=== PATIENT | male | born 1950 | race Hispanic/Latino ===

== ENCOUNTER 2017-12-17 08:59 | Observation (INO) | payer OTHER ==
[2017-12-16 15:41] VITALS: BP 148/89
[2017-12-16 15:50] LABS: CREATININE 1.2 mg/dL (0.5-1.5); POTASSIUM 4.1 mmol/L (3.5-5.1)
[~2017-12-17] VITALS: Ht 172.7 cm; Wt 109.7 kg
[2017-12-17] VITALS (28 sets, daily range): BP systolic 114–168; BP diastolic 60–87
[~2017-12-17 08:59] MED LIST: AEC81 PO; AMLO2.5T PO; AMLO5TAB2 PO; ATOR-2 PO; CEFAZOLIN 3GM /D5W 100ML 100 ML IV SCH; HYDR-4060 PO; METO-391 PO; METO-409 PO; OLME1TAB44 PO
[2017-12-17] MEDS ORDERED: LACTATED RINGERS 1000ML 1,000 ML IV ONE (09:35)
[2017-12-17] MEDS: CEFAZOLIN SODIUM 1 GM VIAL ONE ×2 (09:35→12:20)
[2017-12-17] MEDS ORDERED: EPINEPHRINE 1 MG/ML 30ML VIAL IJ ONE (11:19)
[2017-12-17] MEDS ORDERED: PROPOFOL 10 MG/ML 20ML VIAL IV ONE (11:41)
[2017-12-17] MEDS ORDERED: FENTANYL CITRATE PF 50 MCG/1 ML 2ML VIAL ONE (11:41)
[2017-12-17] MEDS ORDERED: DEXAMETHASONE SOD PHOSPHATE 10MG/ML 1ML VIAL ONE (11:41)
[2017-12-17] MEDS ORDERED: LIDOCAINE PF 2% 5ML ABBOJECT ONE (11:41)
[2017-12-17] MEDS ORDERED: GLYCOPYRROLATE 0.2 MG/ML 5 ML VIAL ONE (11:41)
[2017-12-17] MEDS ORDERED: MIDAZOLAM HCL 1 MG/ML 2ML VIAL ONE (11:41)
[2017-12-17] MEDS ORDERED: HYDR-309 PO (16:25)
[2017-12-17] MEDS ORDERED: NAPR-1192 PO (16:26)
[2017-12-17] MEDS ORDERED: CEPH500B PO (16:26)
[2017-12-17] MEDS ORDERED: CALDOLOR 800MG+NS 250ML 250 ML IV ONE (16:42)
[2017-12-17] MEDS ORDERED: DEXAMETHASONE SOD PHOSPHATE 4 MG/ML 5ML VIAL ONE (16:45)
[2017-12-17] MEDS ORDERED: IPRATROPIUM/ALBUTEROL SULFATE 3 ML SOLUTION IH ONE ×2 (17:32→18:50)
[2017-12-17 17:41] LABS: ABG BASE EXCESS 1.8 mmol/L (-2.0-3.0); ABG HCO3 26.2 mmol/L (21.0-28.0); ABG OXYGEN SATURATION 86.4 % (95.0-99.0); ABG PCO2 40 mmHg (35-48)
[2017-12-17] MEDS ORDERED: SODIUM CHLORIDE 0.9% 10 ML VIAL IVP PRN (20:45)
[2017-12-17] MEDS ORDERED: HYDROCODONE/ACETAMINOPHEN 5/325 MG TAB PO PRN (23:15)
[2017-12-18 01:36] LABS: CREATINE KINASE MB 5.8 ng/mL (0.5-3.6); MYOGLOBIN 327 ng/mL (10-92); TROPONIN I < 0.04 ng/mL (0.00-0.06)
[2017-12-18 01:43] LABS: CREATINE KINASE, TOTAL 540 U/L (21-232)
[2017-12-18] MEDS: IPRATROPIUM/ALBUTEROL SULFATE 3 ML SOLUTION IH SCH ×3 (02:07→10:02)
[2017-12-18] MEDS ORDERED: LEVOFLOXACIN 500 MG/D5W 100 ML 100 ML IV SCH (02:15)
[2017-12-18 04:10] LABS: ABG BASE EXCESS -0.5 mmol/L (-2.0-3.0); ABG HCO3 23.6 mmol/L (21.0-28.0); ABG OXYGEN SATURATION 85.5 % (95.0-99.0); ABG PCO2 37 mmHg (35-48)
[2017-12-18 04:27] VITALS: BP 130/82
[2017-12-18 04:37] LABS: ABG BASE EXCESS -0.1 mmol/L (-2.0-3.0); ABG HCO3 20.7 mmol/L (21.0-28.0); ABG OXYGEN SATURATION 98.8 % (95.0-99.0); ABG PCO2 25 mmHg (35-48)
[2017-12-18] MEDS ORDERED: HYDROCODONE/ACETAMINOPHEN 5/325 MG TAB ONE (05:36)
[2017-12-18] MEDS ORDERED: HYDROCODONE/ACETAMINOPHEN 5/325 MG TAB PO PRN (05:45)
[2017-12-18 06:59] LABS: HEMATOCRIT 38.8 % (42-54); MEAN CORPUSCULAR HEMOGLOBIN 31.4 pg (27.0-33.0); MEAN CORPUSCULAR VOLUME 92.4 fL (79-99); PLATELET COUNT (AUTO) 246 K/uL (130-400); WHITE BLOOD COUNT (AUTO) 14.3 K/uL (4.8-10.8)
[2017-12-18 07:27] LABS: CREATINE KINASE MB 5.2 ng/mL (0.5-3.6); MYOGLOBIN 252 ng/mL (10-92); TROPONIN I < 0.04 ng/mL (0.00-0.06)
[2017-12-18] MEDS ORDERED: KETOROLAC TROMETHAMINE 30MG/ML IV SCH (07:30)
[2017-12-18] MEDS ORDERED: KETOROLAC TROMETHAMINE 30MG/ML ONE (07:36)
[2017-12-18 07:37] LABS: B-TYPE NATRIURETIC PEPTIDE 110 pg/mL (0-100); CREATINE KINASE, TOTAL 689 U/L (21-232)
[2017-12-18 07:44] LABS: CREATININE 1.3 mg/dL (0.5-1.5); POTASSIUM 3.6 mmol/L (3.5-5.1)
[2017-12-18 07:45] VITALS: BP 161/78
[2017-12-18] MEDS ORDERED: METOPROLOL SUCCINATE 100 MG PO SCH (09:00)
[2017-12-18] MEDS ORDERED: ASPIRIN 81 MG EC TAB PO SCH (09:00)
[2017-12-18] MEDS ORDERED: AMLODIPINE BESYLATE 5 MG TAB PO SCH (09:00)
[2017-12-18] MEDS ORDERED: LOSARTAN 100 MG TABLET PO SCH ×2 (09:00→09:50)
[2017-12-18] MEDS ORDERED: HYDROCHLOROTHIAZIDE 25 MG TABLET PO SCH (09:00)
[2017-12-18] MEDS ORDERED: KETOROLAC TROMETHAMINE 30MG/ML IV PRN (10:00)
[2017-12-18] MEDS ORDERED: IOPAMIDOL-370 100 ML VIAL IV ONE (11:38)
[2017-12-18 12:00] VITALS: BP 133/76
[2017-12-18] MEDS ORDERED: ATORVASTATIN CALCIUM 40 MG TABLET PO SCH (21:00)
[2017-12-18] MEDS ORDERED: METOPROLOL SUCCINATE 50 MG PO SCH (21:00)
[2017-12-18] MEDS ORDERED: AMLODIPINE BESYLATE 2.5 MG TAB PO SCH (21:00)
== END 2017-12-18 14:00 | disposition home or self-care (01) ==
LOC: DAH 08:59 → DAHIP 09:00 → DAH 09:00 → 4AH 21:09
PROVIDERS: ADMIT Orthopaedic Surgery; ATTEND Orthopaedic Surgery
DX: M19.011 Primary osteoarthritis, right shoulder (principal); M75.101 Unspecified rotator cuff tear or rupture of right shoulder, not specified as traumatic; E78.5 Hyperlipidemia, unspecified; I25.10 Atherosclerotic heart disease of native coronary artery without angina pectoris; J96.01 Acute respiratory failure with hypoxia; M75.121 Complete rotator cuff tear or rupture of right shoulder, not specified as traumatic; I11.9 Hypertensive heart disease without heart failure; E78.2 Mixed hyperlipidemia; G89.29 Other chronic pain; E66.01 Morbid (severe) obesity due to excess calories; M75.41 Impingement syndrome of right shoulder; J30.89 Other allergic rhinitis; N40.1 Benign prostatic hyperplasia with lower urinary tract symptoms; Z98.61 Coronary angioplasty status; R80.9 Proteinuria, unspecified; Z68.38 Body mass index [BMI] 38.0-38.9, adult; Z79.899 Other long term (current) drug therapy; Z95.5 Presence of coronary angioplasty implant and graft; Z79.82 Long term (current) use of aspirin; Z96.611 Presence of right artificial shoulder joint
CPT/HCPCS: 29824; 29826; 29827; 36415 ×2; 36600 ×2; 71045 ×2; 71275; 80048 ×2; 82550 ×2; 82553 ×2; 82803 ×3; 83874 ×2; 83880 ×2; 84484 ×2; 85027; 85378; 93005 ×2; 94640 ×6; 94660; 94664; 96365; 96375; A4218; A4565; A4649 ×5; A4930; A6204; C1763; G0378 ×29; J0171; J0690 ×2; J1100 ×2; J1741; J1885; J1956; J2001; J2250; J2704; J3010; J3490; J7030; J7120; Q9967

== ENCOUNTER → 2021-02-04 | Outpatient (CLI) | payer OTHER ==
[~2021-02-04] MED LIST changes: +AMLO-257 PO; -AMLO2.5T PO; +AMLO2.5T4 PO; -AMLO5TAB2 PO; -CEFAZOLIN 3GM /D5W 100ML 100 ML IV SCH; +CEPH500B PO; +HYDR-4457 PO; +NAPR-1192 PO; +OLME-11 PO; -OLME1TAB44 PO
== END | disposition home or self-care (01) ==
LOC: RAH 13:13
PROVIDERS: ATTEND Family Medicine
DX: Z01.810 Encounter for preprocedural cardiovascular examination (principal); M75.122 Complete rotator cuff tear or rupture of left shoulder, not specified as traumatic
CPT/HCPCS: 71046

== ENCOUNTER → 2021-04-15 | Outpatient (CLI) | payer OTHER ==
[~2021-04-15] MED LIST changes: -AMLO-257 PO; -AMLO2.5T4 PO; +AMOX-426 PO; -CEPH500B PO; +DOXA4TAB3 PO; -HYDR-4060 PO; -HYDR-4457 PO; +METF-444 PO; -METO-391 PO; -NAPR-1192 PO
== END | disposition home or self-care (01) ==
LOC: RAH 08:48
PROVIDERS: ATTEND Internal Medicine Gastroenterology
DX: N28.1 Cyst of kidney, acquired (principal); R94.5 Abnormal results of liver function studies; K76.0 Fatty (change of) liver, not elsewhere classified
CPT/HCPCS: 76700

== ENCOUNTER 2021-05-01 08:30 | Day surgery (SDC) | payer OTHER ==
[2021-04-30 11:59] LABS: BASOPHILS % (AUTO) 0.8 % (0.0-5.0); EOSINOPHILS % (AUTO) 6.9 % (0.0-8.0); HEMATOCRIT 34.5 % (42-54); LYMPHOCYTES % (AUTO) 16.9 % (21.0-51.0); MEAN CORPUSCULAR HEMOGLOBIN 28.5 pg (27.0-33.0); MEAN CORPUSCULAR HGB CONC 31.3 g/dL (32.0-36.0); MONOCYTES % (AUTO) 10.2 % (3.0-13.0); NEUTROPHILS % (AUTO) 64.6 % (40.0-77.0); PLATELET COUNT (AUTO) 331 K/uL (130-400); RED BLOOD CELL COUNT(AUTO) 3.79 MIL/uL (4.50-6.20); RED CELL DISTRIBUTION WIDTH 15.4 % (11.0-15.5); WHITE BLOOD COUNT (AUTO) 8.9 K/uL (4.8-10.8)
[2021-04-30 12:05] LABS: CREATININE 1.1 mg/dL (0.5-1.5); POTASSIUM 3.4 mmol/L (3.5-5.1)
[2021-04-30 12:30] VITALS: BP 143/67
[~2021-05-01] VITALS: Ht 167.6 cm; Wt 93.9 kg
[2021-05-01] VITALS (16 sets, daily range): BP systolic 94–134; BP diastolic 51–79
[~2021-05-01 08:30] MED LIST changes: -AMOX-426 PO; -DOXA4TAB3 PO; +DOXA8TAB81 PO; +FOLI1 PO; +IRON PO; +LACTATED RINGERS 1000ML 1,000 ML IV SCH; +METH2.5T6 PO; +VITAMIN B12 PO
[2021-05-01] MEDS ORDERED: 0.9%NACL 1000ML 1,000 ML IV ONE (08:41)
[2021-05-01] MEDS ORDERED: BUPIVACAINE/EPI/PF 0.25% 10ML VIAL IJ ONE (08:44)
[2021-05-01] MEDS ORDERED: LIDOCAINE PF 100MG/5ML (2%) SYRINGE 5ML ONE (08:56)
[2021-05-01] MEDS ORDERED: SUCCINYLCHOLINE CHLORIDE 20 MG/ML 10 ML VIAL ONE (08:56)
[2021-05-01] MEDS ORDERED: FENTANYL CITRATE PF 50 MCG/1 ML 2ML VIAL ONE (08:57)
[2021-05-01] MEDS ORDERED: ROCURONIUM 10MG/1ML SYR 10 MG/ML ML ONE (08:57)
[2021-05-01] MEDS ORDERED: PROPOFOL 10 MG/ML 20ML VIAL IV ONE (08:57)
[2021-05-01] MEDS: CEFAZOLIN SODIUM 1 GM VIAL IVP ONE ×2 (09:04→10:33)
[2021-05-01] MEDS ORDERED: ROPIVACAINE 0.5% 5MG/ML 30ML IJ ONE (09:16)
[2021-05-01] MEDS ORDERED: EPHEDRINE SULFATE 50 MG/ML AMPULE ONE (10:39)
[2021-05-01] MEDS ORDERED: 0.9%NACL 10ML VIAL ONE (10:54)
[2021-05-01] MEDS ORDERED: PHENYLEPHRINE HCL 10 MG/ML 1ML VIAL IV ONE ×3 (10:54→11:19)
[2021-05-01] MEDS ORDERED: TRANEXAMIC ACID 1000MG/10ML ONE (11:00)
[2021-05-01] MEDS ORDERED: NEOSTIGMINE 5MG/5ML SYR IV ONE (11:34)
[2021-05-01] MEDS ORDERED: GLYCOPYRROLATE 1 MG/5 ML SYRINGE ONE (11:34)
[2021-05-01] MEDS ORDERED: KETOROLAC 30MG VIAL (30MG/ML) ONE (11:36)
== END 2021-05-01 13:15 | disposition home or self-care (01) ==
LOC: DAH 08:30
PROVIDERS: ATTEND Orthopaedic Surgery
DX: M75.122 Complete rotator cuff tear or rupture of left shoulder, not specified as traumatic (principal); M65.812 Other synovitis and tenosynovitis, left shoulder; Z20.822 Contact with and (suspected) exposure to COVID-19; M06.9 Rheumatoid arthritis, unspecified; I10 Essential (primary) hypertension; E78.00 Pure hypercholesterolemia, unspecified; E11.9 Type 2 diabetes mellitus without complications; J45.909 Unspecified asthma, uncomplicated; I25.10 Atherosclerotic heart disease of native coronary artery without angina pectoris; E78.5 Hyperlipidemia, unspecified; I25.2 Old myocardial infarction; Z79.899 Other long term (current) drug therapy; Z98.890 Other specified postprocedural states
CPT/HCPCS: 23412; 23430; 36415; 64415; 76942; 80048; 82948 ×2; 85025; 87070; 87076; 87205; 87635; 93005; A4215 ×2; A4221; A4222; A4223; A4565; A4600; A4663; A5120; A6207; C1713 ×2; C9803; J0330; J0690; J1885; J2001; J2370 ×3; J2704; J2710; J2795; J3010; J3490 ×3; J7030; J7120